=== PATIENT | female | born 1970 | race Hispanic/Latino ===

== ENCOUNTER 2023-10-01 17:06 | Inpatient (IN) | payer SELFPAY ==
[2023-10-01] MEDS ORDERED: MORPHINE 4 MG/ML SYR ONE (18:36)
[2023-10-01] MEDS ORDERED: ONDANSETRON 4 MG/2 ML VIAL ONE (18:36)
[2023-10-01 18:49] LABS: Absolute Basophils 0.1 K/uL (0-0.5); Absolute Eosinophils 0.2 K/uL (0-0.5); Absolute Lymphocytes (CBC) 1.1 K/uL (0.7-4.9); Absolute Monocytes 1.2 K/uL (0.1-1.3); Absolute Neutrophil 9.1 K/uL (1.8-8.0); Basophils % 0.5 % (0-1.3); Eosinophils % 1.6 % (0-4.4); Hematocrit 31.3 % (36.0-45.0); Hemoglobin 9.6 g/dL (12.0-15.0); Lymphocytes % 9.2 % (15.3-44.8); MCHC 30.7 g/dL (32.0-36.0); MCV 81.5 fL (80-100); MPV 8.6 fL (7.6-11.3); Monocytes % 10.6 % (3.3-12.3); Neutrophils % 78.1 % (41.7-73.7); Nucleated Red Blood Cells % 0.1 % (0-0); Platelets 245 thou/uL (152-406); RBC Red Blood Cell Count 3.84 M/uL (3.86-4.86); Red Cell Distribution Width 19.6 % (12.1-15.2)
[2023-10-01 19:04] LABS: PT Prothrombin Time 15.9 SECONDS (9.4-12.5); PTT, Activated Partial Thromb 32.9 SECONDS (24.3-36.9); Protime INR 1.43
[2023-10-01 19:07] LABS: SARS-CoV-2 Antigen CONTROL BLUE LINE VIS/BG OK; SARS-CoV-2 Antigen Rapid Res Negative (Negative)
[2023-10-01 19:12] LABS: AST/SGOT 56 U/L (15-37); Albumin 2.6 g/dL (3.4-5.0); Albumin/Globulin Ratio 0.6 (1.1-1.8); Alkaline Phosphatase 179 U/L (45-117); Anion Gap 11.1 mEq/L (5.0-15.0); BUN Blood Urea Nitrogen 28 mg/dL (7-18); Bicarbonate 29 mEq/L (21-32); Bilirubin Total 0.7 mg/dL (0.2-1.0); Globulin 4.3 g/dL (2.3-3.5); Glomerular Filtration Rate 112 ml/min (=/>90); Glucose Level 106 mg/dL (74-106); NT PRO-BNP 2404 pg/mL (<125); Potassium 3.1 mEq/L (3.5-5.1); Protein, Total 6.9 g/dL (6.4-8.2); Sodium Level 138 mEq/L (136-145)
[2023-10-01 19:13] LABS: ALT/SGPT < 14 U/L (13-56)
[2023-10-01 19:43] LABS: Specific Gravity > 1.030 (1.005-1.030); Sqamous Epithelial <5 /HPF (None Seen); Urine Bacteria None Seen /HPF (<20); Urine Bilirubin NEGATIVE (Negative); Urine Blood Negative (Negative); Urine Clarity Extremely Turbid (Clear); Urine Color Yellow (Yellow); Urine Culture Reflex Order NOT NEEDED; Urine Glucose NEGATIVE (Negative); Urine Ketones 2+ (Negative); Urine Microscopic Reflex YN ORDER UMIC; Urine Mucus Slight /HPF (None Seen); Urine Nitrite NEGATIVE (Negative); Urine Protein 2+ (Negative); Urine RBC 21-50 /HPF (None Seen); Urine Urobilinogen 1+ (Normal); Urine WBC <5 /HPF (<5)
--- NOTE | 2023-10-01 20:10 | RAD REPORT ---
EXAM DESCRIPTION: Chasidy Single View10/01/2023 6:37 pm CLINICAL HISTORY: DYSPNEA COMPARISON: No comparisons TECHNIQUE: Portable AP view of the chest. FINDINGS: Central interstitial prominence bilaterally. Scattered mild mid to lower lung patchy opaci ties. No pneumothorax or effusion. The cardiomediastinal contours are unremarkable. IMPRESSION: Mild mid to lower lung patchy opacities and mild central interstitial prominence. Findin gs may reflect early pneumonitis or mild edema.
[2023-10-01] MEDS ORDERED: HYDRALAZINE HCL 20 MG/ML VIAL ONE (20:36)
--- NOTE | 2023-10-01 22:03 | RAD REPORT ---
EXAM DESCRIPTION: CT - Chest Abdomen Pelvis W Cont - 10/01/2023 8:48 pm CLINICAL HISTORY: dyspnea, abd pain;Chest pain COMPARISON: Chest Single View dated 10/01/2023 TECHNIQUE: Thin axial CT images of the chest, abdomen, and pelvis, performed following intravenous a dministration of iodinated contrast. Multiplanar reformats were generated and reviewed. All CT scans are performed using dose optimization technique as appropriate and may include automated exposure control or mA/KV adjustment according to patient size. FINDINGS: Small layering left pleural effusion. Peripheral predominant reticulonodular opacities and mild central interstitial prominence. Subsegmental dependent atelectatic changes in the left lower l obe.No pleural or pericardial effusion.Moderate cardiomegaly. The liver, spleen, pancreas, adrenal glands and kidneys are within normal limits. Sequelae of gastric bypass noted. Appendix is unremarkable. No bowel obstruction, free air, free flui d or abscess. Status post cholecystectomy. Mild central biliary radicle prominence and mild prominenc e of the common bile duct may relate to postcholecystectomy status. No pathologic lymphadenopathy in the abdomen or pelvis. Prominent bilateral hilar and mediastinal lymph nodes, the largest node is present in the subcarinal region measuring 1.5 cm in short axis. Prominent epigastric and upper retroperitoneal lymph nodes as well, largest in the left para-aortic region, measuring 1.3 cm in short axis. Diffuse body wall edema. Innumerable lucent lesions throughout the axial and appendicular skeletons, resulting in numerous com pression fracture deformities at T5, T6, T8, T11, T12, and L3. The lesion involving posterior T8 vert ebral body is sizable, with some retropulsion of the posterior vertebral body margin extending approx imately 6 mm. Periosteal reaction along the inferior pubic ramus and left lateral eighth rib, suggest ing healing fractures. IMPRESSION: Moderately prominent mediastinal, bilateral hilar, epigastric, and upper retroperitoneal lymph nodes, concerning for neoplastic/metastatic etiology. Innumerable lucent osseous lesions, suggesting metastatic disease or involvement with blood dyscrasia s, resulting in numerous thoracic and lumbar vertebral body compression deformities. 6 mm retropulsio n is noted along the posterior T8 vertebral body margin. Diffuse body wall edema. Reticulonodular bilateral peripheral predominant opacities, may represent an infectious or inflammato ry process versus lymphangitic neoplastic involvement. Small layering left pleural effusion. Moderate cardiomegaly.
--- NOTE | 2023-10-01 23:12 | EDPHYS ---
Physician Documentation [facility] Name: Erin Vega Age: 53 yrs Sex: Female : 1970 Arrival Date: 10/01/2023 Time: 17:06 Bed 13 Private MD: ED Physician Alexys Peraza HPI: 09/30 18:04 This 53 yrs old Female presents to ER via Wheelchair with complaints of sb4 Shortness Of Breath. 18:04 The patient has shortness of breath at rest. Patient states that she has been feeling sb4 fatigued and short of breath for the past few days. She was recently diagnosed with iron deficiency and has been getting iron infusions weekly for the past 2 weeks. She states that additionally, she has been getting vitamin IV infusions twice a week. The nurse providing her infusions checked her vitals today and noted her to be hypoxic and hypertensive and sent her to the ED for further evaluation. 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 - Infectious Disease History:: Denies. - Social history:: Smoking status: Patient denies any tobacco usage or history of. ROS: 18:04 Cardiovascular: Negative for chest pain, palpitations, and edema, sb4 18:04 Constitutional: Positive for fatigue, malaise, 18:04 Respiratory: Positive for dyspnea on exertion, shortness of breath, 18:04 Back: Positive for pain at rest, pain with movement, 18:04 Hematologic/Lymphatic: Positive for bruising, 18:04 All other systems are negative, Exam: 18:04 Head/Face: Normocephalic, atraumatic. Eyes: Extra-ocular motions intact. Periorbital sb4 areas with no swelling, redness, or edema. ENT: Mucous membranes moist. Cardiovascular: Regular rate and rhythm with a normal S1 and S2. Respiratory: Lungs have equal breath sounds bilaterally, clear to auscultation and percussion. No rales, rhonchi or wheezes noted. No increased work of breathing, no retractions or nasal flaring. Abdomen/GI: Soft, non-tender, no distension. 18:04 Constitutional: The patient appears alert, awake, obviously ill, uncomfortable, 18:04 Skin: ecchymosis bilateral upper arms. Vital Signs: 17:24 BP 227 / 116; Pulse 102; Resp 24; Temp 97.6(TE); Pulse Ox 95% on R/A; db 18:17 BP 202 / 110; Pulse 91; Resp 18; Pulse Ox 94% ; dd2 18:56 BP 192 / 102; Pulse 87; Resp 15; Pulse Ox 98% ; dd2 19:00 BP 206 / 100; Pulse 82; Resp 18; Pulse Ox 98% on 3 lpm NC; al5 20:00 BP 199 / 105; Pulse 81; Resp 18; Pulse Ox 97% on 3 lpm NC; al5 20:32 Weight 61.69 kg; Height 5 ft. 0 in. ; al5 21:00 BP 182 / 93; Pulse 93; Resp 18; Pulse Ox 96% on 3 lpm NC; al5 21:30 BP 186 / 90; Pulse 91; Resp 18; Pulse Ox 96% on 3 lpm NC; al5 22:00 BP 180 / 95; Pulse 90; Resp 18; Pulse Ox 97% on 3 lpm NC; al5 22:30 BP 186 / 89; Pulse 94; Resp 18; Pulse Ox 85% on R/A; al5 22:45 BP 188 / 99; Pulse 98; Resp 18; Pulse Ox 95% on 3 lpm NC; al5 23:00 BP 193 / 103; Pulse 102; Resp 18; Pulse Ox 95% on 3 lpm NC; al5 23:30 BP 189 / 95; Pulse 97; Resp 18; Pulse Ox 95% on 3 lpm NC; al5 10/01 11:47 BP 194 / 112; Pulse 85; Resp 20; Pulse Ox 96% on 2 lpm NC; kj2 09/30 20:32 Body Mass Index 26.56 (61.69 kg, 152.4 cm) al5 MDM: 09/30 17:20 Patient medically screened. sb4 23:55 Data reviewed: vital signs, nurses notes, lab test result(s), EKG, radiologic studies, sb4 I have discussed the patient's presentation/case with the attending Emergency Department Physician; and as a result, I will admit patient. Consideration of Admission/Observation Patient was admitted/placed on observation. Counseling: I had a detailed discussion with the patient and/or guardian regarding the historical points, exam findings, and any diagnostic results supporting the discharge/admit diagnosis, the presence of at least one elevated blood pressure reading (>120/80) during this emergency department visit, lab results, radiology results, the need for further work-up and treatment in the hospital. 09/30 17:35 Order name: Blood Culture Adult (2) [facility] 09/30 17:35 Order name: CBC with Diff; Complete Time: 18:58 sb4 09/30 17:35 Order name: CMP; Complete Time: 19:19 [facility] 09/30 17:35 Order name: Lactate w/ 2H reflex if indic.; Complete Time: 19:11 sb 09/30 17:35 Order name: Protime (+inr); Complete Time: 19:05 [facility] 09/30 17:35 Order name: Ptt, Activated; Complete Time: 19:05 [facility] 09/30 17:35 Order name: Urinalysis w/ reflexes; Complete Time: 19:44 sb4 09/30 17:35 Order name: NT PRO-BNP; Complete Time: 19:19 [facility] 09/30 17:36 Order name: Type And Screen; Complete Time: 20:54 sb4 09/30 17:37 Order name: SARS RAPID; Complete Time: 19:08 4 09/30 20:46 Order name: ABO/RH no charge; Complete Time: 20:50 [facility]CO 09/30 23:43 Order name: Urinalysis w/ reflexes EDCO 09/30 23:43 Order name: CBC with Automated Diff EDCO 09/30 23:43 Order name: CBC with Automated Diff; Complete Time: 13:34 EDMS 09/30 23:43 Order name: Comprehensive Metabolic Panel EDCO 09/30 23:43 Order name: Comprehensive Metabolic Panel; Complete Time: 13:34 EDMS 10/01 08:51 Order name: CBC Smear Scan; Complete Time: 13:34 EDMS 09/30 17:35 Order name: Chest Single View XRAY; Complete Time: 20:12 sb4 09/30 20:13 Order name: CT Chest, Abdomen, Pelvis - W/Contrast; Complete Time: 22:08 sb4 09/30 17:35 Order name: Accucheck; Complete Time: 18:54 sb4 09/30 17:35 Order name: Cardiac monitoring; Complete Time: 18:11 sb4 09/30 17:35 Order name: EKG - Nurse/Tech; Complete Time: 18:36 sb4 09/30 17:35 Order name: IV Saline Lock - Large Bore; Complete Time: 18:36 sb4 09/30 17:35 Order name: Labs collected and sent; Complete Time: 19:30 sb4 09/30 17:35 Order name: O2 Per Protocol; Complete Time: 18:11 sb4 09/30 17:35 Order name: O2 Sat Monitoring; Complete Time: 18:11 sb4 09/30 17:35 Order name: Vital Signs; Complete Time: 18:11 sb4 EC:35 Rate is 94 beats/min. Rhythm is regular, Normal Sinus Rhythm. CT interval is normal at sb4 144 msec. QRS interval is normal at 126 msec. QT interval is normal at 370 msec. No Q waves. T waves are Normal. Clinical impression: NSR w/ Non-specific ST/T Changes and LVH. Interpreted by me. Reviewed by me. Administered Medications: 18:48 Drug: morphine IVP or IV 4 mg IVP once over 4 mins Route: IVP; Infused Over: 4 mins; dd2 Site: right forearm; 19:30 Follow up: Response: No adverse reaction; Pain is decreased al5 18:48 Drug: Ondansetron IVP 4 mg IVP once; over 2 minutes Route: IVP; Site: right forearm; dd2 19:30 Follow up: Response: No adverse reaction; Nausea is decreased al5 20:42 Drug: hydrALAZINE IVP 10 mg IVP once Route: IVP; Site: right forearm; al5 21:00 Follow up: Response: No adverse reaction; Blood pressure is elevated al5 Disposition Summary: 10/01/23 23:11 Hospitalization Ordered Notes: Hospitalization Status: Inpatient Admission sb4 Provider: Andrea Jackson sb4 Condition: Fair sb4 Problem: new sb4 Symptoms: are unchanged sb4 Bed/Room Type: Standard sb4 Location: Telemetry/MedSurg (Inpatient)(10/02/23 13:34) bd Room Assignment: 216(10/02/23 13:34) bd Diagnosis - Hypoxemia sb4 - Iron deficiency anemia, unspecified sb4 - Innumerable metasteses sb4 Forms: - Medication Reconciliation Form sb4 - SBAR form sb4 - Leadership Thank You Letter sb4 Addendum: 10/07/2023 16:02 I was immediately available for consultation during this patient's visit. I did not e c2 personally see the patient or discuss the patient with the LORELEI. . Signatures: Dispatcher [employer] EDMS CatieNuris hanson Shira Sharma, RN RN cg Raven Cardona RN RN ko1 Jacklyn Dunn, RN RN Nicole Bell, PABashir PAJezC sb4 Alexys Peraza MD MD ec2 Olivia Avalos RN RN al5 TAMEKA WALLER RN RN dd2 Corrections: (The following items were deleted from the chart) 09/30 17:36 17:35 BLOOD CULTURE*+BA.LAB.BRZ ordered. EDMS EDMS 17:36 17:35 CBC+H.LAB.BRZ ordered. EDMS EDMS 17:36 17:35 COMPREHENSIVE METABOLIC PANEL+C.LAB.BRZ ordered. EDMS EDMS 17:36 17:35 LACTATE+C.LAB.BRZ ordered. EDMS EDMS 17:36 17:35 PROTIME (+INR)+COAG.LAB.BRZ ordered. EDMS EDMS 17:36 17:35 PTT, ACTIVATED+COAG.LAB.BRZ ordered. EDMS EDMS 17:36 17:35 Urinalysis+U.LAB.BRZ ordered. EDMS EDMS 17:36 17:35 PROBNP+C.LAB.BRZ ordered. EDMS EDMS 17:36 17:36 Chest Single View+RAD.RAD.BRZ ordered. EDMS EDMS 23:49 23:11 Telemetry/MedSurg (Inpatient) sb4 cg 23:49 23:11 sb4 cg 10/01 13:34 09/30 23:49 [facility] ER HOLD cg bd 10/01 13:34 09/30 23:49 ERHOLD- cg bd
--- NOTE | 2023-10-01 23:12 | ER ---
Nurse's Notes [facility] Name: Erin Vega Age: 53 yrs Sex: Female : 1970 Arrival Date: 10/01/2023 Time: 17:06 Bed 13 Private MD: Diagnosis: Hypoxemia;Iron deficiency anemia, unspecified;Innumerable metasteses Presentation: 09/30 17:24 Chief complaint: Patient states: SENT TODAY BY INFUSION NURSE FOR SOB, BILAT BRUISING db OF EXTREMITIES, CHRONIC BACK PAIN, LOW 02 92%, BP HIGH 220/130. RECEIVES IRON INFUSIONS WEEKLY. HAD SX FOR ULCER PERFORATION AND HAD MULTIPLE BLOOD TRANSFUSIONS. Coronavirus screen: Client denies travel out of the [place] in the last 14 days. At this time, the client does not indicate any symptoms associated with coronavirus-19. Ebola Screen: Patient negative for fever greater than or equal to 101.5 degrees Fahrenheit, and additional compatible Ebola Virus Disease symptoms Patient denies exposure to infectious person. Patient denies travel to an Ebola-affected area in the 21 days before illness onset. No symptoms or risks identified at this time. Initial Sepsis Screen: Does the patient meet any 2 criteria? No. Patient's initial sepsis screen is negative. Does the patient have a suspected source of infection? No. Patient's initial sepsis screen is negative. Risk Assessment: Do you want to hurt yourself or someone else? Patient reports no desire to harm self or others. Onset of symptoms was October 01, 2023. 17:24 Method Of Arrival: Wheelchair db 17:24 Acuity: EDINSON 2 db Triage Assessment: 17:24 General: Appears in no apparent distress. comfortable, Behavior is calm, cooperative. db Pain: Complains of pain in back. Neuro: Level of Consciousness is awake, alert, obeys commands, Oriented to person, place, time, situation, Speech is normal. Respiratory: Reports shortness of breath Airway is patent Respiratory effort is even, unlabored, Respiratory pattern is regular, symmetrical, Onset: The symptoms/episode began/occurred gradually, the patient has mild shortness of breath. 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 - Infectious Disease History:: Denies. - Social history:: Smoking status: Patient denies any tobacco usage or history of. Screenin:17 [facility] ED Fall Risk Assessment (Adult) History of falling in the last 3 months, dd2 including since admission No falls in past 3 months (0 pts) Confusion or Disorientation No (0 pts) Intoxicated or Sedated No (0 pts) Impaired Gait No (0 pts) Mobility Assist Device Used No (0 pt) Altered Elimination No (0 pt) Score/Fall Risk Level 0 - 2 = Low Risk Oriented to surroundings, Maintained a safe environment, Educated pt \T\ family on fall prevention, incl call for assistance when getting out of bed, Assessed \T\ reinforced patient's understanding of fall precautions, Provided non-skid footwear, Hourly rounding (assess needs \T\ fall precautionary measures) done, Used ambulatory aids as needed (educated on \T\ assisted with), Used gait belt as appropriate. Abuse screen: Denies threats or abuse. Denies injuries from another. Nutritional screening: No deficits noted. Tuberculosis screening: No symptoms or risk factors identified. Assessment: 18:50 General: Appears in no apparent distress. Behavior is calm, cooperative. dd2 Cardiovascular: elevated BP. Rhythm is sinus rhythm. Respiratory: Reports shortness of breath Airway is patent Respiratory effort is even, unlabored, Breath sounds are clear bilaterally. GI: No deficits noted. : No deficits noted. EENT: No deficits noted. Derm: Bruising that is dark purple, on right arm and left arm. Musculoskeletal: No deficits noted. 18:53 Pain: Complains of pain in back. dd2 19:15 General: Appears in no apparent distress. Behavior is calm, cooperative. Pain: al5 Complains of pain in back Pain currently is 1 out of 10 on a pain scale. Neuro: Level of Consciousness is awake, alert, obeys commands, Oriented to person, place, time, situation. Cardiovascular: Capillary refill < 3 seconds Patient's skin is warm and dry. Respiratory: Airway is patent Respiratory effort is even, unlabored, Respiratory pattern is regular, symmetrical. GI: No signs and/or symptoms were reported involving the gastrointestinal system. : No signs and/or symptoms were reported regarding the genitourinary system. EENT: No signs and/or symptoms were reported regarding the EENT system. Derm: Bruising that is dark purple, on left arm and right arm. Musculoskeletal: No signs and/or symptoms reported regarding the musculoskeletal system. 20:10 Reassessment: Patient appears in no apparent distress at this time. No changes from al5 previously documented assessment. Patient and/or family updated on plan of care and expected duration. Pain level reassessed. Patient is alert, oriented x 3, equal unlabored respirations, skin warm/dry/pink. 21:44 Reassessment: Patient appears in no apparent distress at this time. No changes from al5 previously documented assessment. Patient and/or family updated on plan of care and expected duration. Pain level reassessed. Patient is alert, oriented x 3, equal unlabored respirations, skin warm/dry/pink. 22:28 Reassessment: Patient appears in no apparent distress at this time. No changes from al5 previously documented assessment. Patient and/or family updated on plan of care and expected duration. Pain level reassessed. Patient is alert, oriented x 3, equal unlabored respirations, skin warm/dry/pink. 23:56 Reassessment: Patient appears in no apparent distress at this time. No changes from al5 previously documented assessment. Patient and/or family updated on plan of care and expected duration. Pain level reassessed. Patient is alert, oriented x 3, equal unlabored respirations, skin warm/dry/pink. 10/01 10:15 General: Appears in no apparent distress. Behavior is calm, cooperative. Neuro: Level kj2 of Consciousness is awake, alert, obeys commands, Oriented to person, place, time, situation. Cardiovascular: Patient's skin is warm and dry. Respiratory: Airway is patent Respiratory effort is even, unlabored. Vital Signs: 09/30 17:24 BP 227 / 116; Pulse 102; Resp 24; Temp 97.6(TE); Pulse Ox 95% on R/A; db 18:17 BP 202 / 110; Pulse 91; Resp 18; Pulse Ox 94% ; dd2 18:56 BP 192 / 102; Pulse 87; Resp 15; Pulse Ox 98% ; dd2 19:00 BP 206 / 100; Pulse 82; Resp 18; Pulse Ox 98% on 3 lpm NC; al5 20:00 BP 199 / 105; Pulse 81; Resp 18; Pulse Ox 97% on 3 lpm NC; al5 20:32 Weight 61.69 kg; Height 5 ft. 0 in. ; al5 21:00 BP 182 / 93; Pulse 93; Resp 18; Pulse Ox 96% on 3 lpm NC; al5 21:30 BP 186 / 90; Pulse 91; Resp 18; Pulse Ox 96% on 3 lpm NC; al5 22:00 BP 180 / 95; Pulse 90; Resp 18; Pulse Ox 97% on 3 lpm NC; al5 22:30 BP 186 / 89; Pulse 94; Resp 18; Pulse Ox 85% on R/A; al5 22:45 BP 188 / 99; Pulse 98; Resp 18; Pulse Ox 95% on 3 lpm NC; al5 23:00 BP 193 / 103; Pulse 102; Resp 18; Pulse Ox 95% on 3 lpm NC; al5 23:30 BP 189 / 95; Pulse 97; Resp 18; Pulse Ox 95% on 3 lpm NC; al5 10/01 11:47 BP 194 / 112; Pulse 85; Resp 20; Pulse Ox 96% on 2 lpm NC; kj2 09/30 20:32 Body Mass Index 26.56 (61.69 kg, 152.4 cm) id5 ED Course: 09/30 17:12 Patient arrived in ED. mg5 17:12 Nicole Burroughs PA-C is PHCP. sb4 17:12 Alexys Peraza MD is Attending Physician. sb4 17:26 Triage completed. db 17:27 Arm band placed on left wrist. db 17:56 TAMEKA WALLER, ASIA is Primary Nurse. dd2 18:17 Patient has correct armband on for positive identification. Allergy band placed. Bed in dd2 low position. Call light in reach. Side rails up X2. Provided Education on: labs, call light, meds. Client placed on continuous cardiac and pulse oximetry monitoring. NIBP monitoring applied. signing agent on. Door closed. Noise minimized. Lights dimmed. Warm blanket given. Pillow given. 18:25 Inserted saline lock: 22 gauge in left wrist, using aseptic technique. Blood collected. ll1 Flushed with 10 mL NS. 18:36 EKG done, by ED staff, reviewed by Nicole Burroughs PA-C. dd2 18:37 SARS RAPID Sent. dd2 18:38 CBC with Diff Sent. dd2 18:38 CMP Sent. dd2 18:38 Lactate w/ 2H reflex if indic. Sent. dd2 18:38 Protime (+inr) Sent. dd2 18:38 Ptt, Activated Sent. dd2 18:39 Chest Single View XRAY In Process Unspecified. EDMS 18:53 No provider procedures requiring assistance completed. Missed attempt(s): 20 gauge in dd2 left antecubital area. Bleeding controlled, band aid applied, catheter tip intact. Oxygen administration via nasal cannula \T\ 2L/min. 19:30 Blood Culture Adult (2) Sent. al5 19:30 Urinalysis w/ reflexes Sent. al5 19:31 Type And Screen Sent. al5 20:49 CT Chest, Abdomen, Pelvis - W/Contrast In Process Unspecified. EDMS 23:10 Andrea Jackson MD is Hospitalizing Provider. sb4 23:30 Patient admitted, IV remains in place. vc1 Administered Medications: 18:48 Drug: morphine IVP or IV 4 mg IVP once over 4 mins Route: IVP; Infused Over: 4 mins; dd2 Site: right forearm; 19:30 Follow up: Response: No adverse reaction; Pain is decreased al5 18:48 Drug: Ondansetron IVP 4 mg IVP once; over 2 minutes Route: IVP; Site: right forearm; dd2 19:30 Follow up: Response: No adverse reaction; Nausea is decreased al5 20:42 Drug: hydrALAZINE IVP 10 mg IVP once Route: IVP; Site: right forearm; al5 21:00 Follow up: Response: No adverse reaction; Blood pressure is elevated al5 Medication: 18:53 VIS not applicable for this client. dd2 Outcome: 23:11 Decision to Hospitalize by Provider. sb4 23:30 Admitted to ER Hold. Please see [facility] for further documentation. vc1 23:30 Condition: good 23:30 Instructed on the need for admit, vc1 10/01 15:42 Patient left the ED. cm10 Signatures: Dispatcher [employer] EDMS Alex Her RN RN ll1 Delia Brady RN RN vc1 Jacklyn Dunn RN RN Nicole Bell PA-C PA-C sb4 Laine Islas, RN RN cm10 Teresa Murrell mg5 Olivia Avalos RN RN al5 Suzette Bruce, RN RN kj2 TAMEKA WALLER RN RN dd2 Corrections: (The following items were deleted from the chart) 09/30 18:53 18:50 General: Appears in no apparent distress. Behavior is calm, cooperative, dd2 dd2 21:45 19:00 BP 206 / 100; Pulse 82bpm; Resp 18bpm; Pulse Ox 98% RA; al5 al5 21:45 20:00 BP 199 / 105; Pulse 81bpm; Resp 18bpm; Pulse Ox 97% RA; al5 al5
--- NOTE | 2023-10-01 23:37 | P.HP ---
Certification for Inpatient Patient admitted to: Inpatient With expected LOS: >2 Midnights Practitioner: I am a practitioner with admitting privileges, knowledge of patient current condition, hospital course, and medical plan of care. Services: Services provided to patient in accordance with Admission requirements found in Title 42 Section 412.3 of the Code of Federal Regulations Patient History Date of Service: 10/02/23 Reason for admission: Shortness of breath, generalized weakness History of Present Illness: 53 yrs old Female with past medical history of hypertensive disorder ,Anemia , on iron infusion brought to ER with shortness of breath and generalized weakness had intractable body pain which has been going on for the few days and has been getting worse recently and was brought to ER . She was diagnosed with iron deficiency anemia and has been receiving infusions of iron for the last 2 weeks. In the infusion clinic they noticed that the patient was hypoxic and short of breath and hypertensive and was sent over to the ER for further management. Patient denies any chest pain. Have generalized body pain. Denies any fever or chills. No nausea vomiting or diarrhea. Patient was assessed in the ER and is admitted for further management Allergies pantoprazole Allergy (Verified 10/02/23 00:41) Nausea/Vomiting sucralfate [From Carafate] Allergy (Verified 10/02/23 00:41) Rash Home medications list reviewed: Yes - Past Medical/Surgical History Past Medical History: Reviewed- Non-Contributory -: Hypertension -: Iron deficiency anemia Past Surgical History: Reviewed- Non-Contributory - Family History Family History: Reviewed- Non-Contributory Physical Examination - Vital Signs Temperature: 97.2 F Blood Pressure: 132/72 Pulse: 76 Respirations: 18 Pulse Ox (%): 94 - Physical Exam General: Alert, Oriented x3, Mild distress HEENT: Atraumatic, Normocephalic Neck: Supple Respiratory: Diminished, Crackles/rales Cardiovascular: Normal pulses, Regular rate/rhythm, Normal S1 S2 Capillary refill: <2 Seconds Gastrointestinal: Soft and benign, W/out hepatosplenomegaly Musculoskeletal: No clubbing Integumentary: No rashes, No breakdown Neurological: Normal speech, Normal strength at 5/5 x4 extr, Cranial nerves 3-12 intact Lymphatics: No axilla or inguinal lymphadenopathy - Studies Laboratory Data (last 24 hrs) 08/20/24 08/20/24 08/20/24 18:30 18:30 18:30 WBC 11.70 H Hgb 9.6 L Hct 31.3 L Plt Count 245 PT 15.9 H INR 1.43 APTT 32.9 Sodium 138 Potassium 3.1 L BUN 28 H Creatinine 0.51 L Glucose 106 Total Bilirubin 0.7 AST 56 H ALT < 14 Alkaline Phosphatase 179 H Assessment and Plan - Plan Acute on chronic CHF possibly systolic/diastolic Monitor closely on telemetry Started on aggressive diuresis Oxygen supplementation as needed Will try to wean down oxygen requirement Continue home medications Titrate as needed Will obtain an echocardiogram Elevated BNP found History of iron deficiency anemia On iron infusions Will monitor CBC Transfuse as needed Abnormal CT scan Patient denies any history of cancers CT findings noted with possible metastatic lesions Needs further workup Hypertension Antihypertensives titrated Continue home medications and titrate as needed Hyperlipidemia Continue statin GI/DVT prophylaxis Advanced directive full code Discharge Plan: Home Plan to discharge in: 48 Hours - Advance Directives Does patient have a Living Will: No Does patient have a Durable POA for Healthcare: No - Code Status/Comfort Care Code Status: Full Code Time Spent Managing Pts Care (In Minutes): 48
[2023-10-01] MEDS ORDERED: ALBUTEROL 2.5 MG/3 ML NEB SOL NEB PRN (23:38)
[2023-10-01] MEDS ORDERED: ACETAMINOPHEN 325 MG TABLET PO PRN (23:38)
[2023-10-01] MEDS ORDERED: IPRATROPIUM BROM 0.5MG/2.5ML NEB PRN (23:38)
[2023-10-02] MEDS: NA CHLORIDE 0.9% 1,000 ML IV SCH
[2023-10-02] MEDS ORDERED: NA CHLORIDE 0.9% 1,000 ML ONE ×2 (00:43→12:19)
[2023-10-02] MEDS: FUROSEMIDE 40 MG/4 ML VIAL IV SCH (02:43)
[2023-10-02] MEDS ORDERED: FUROSEMIDE 40 MG/4 ML VIAL ONE ×2 (04:42→08:31)
[2023-10-02] MEDS ORDERED: MORPHINE 2 MG/ML SYR ONE ×3 (04:42→14:38)
[2023-10-02 05:04] VITALS: BMI 26.5
[2023-10-02 07:42] LABS: Absolute Basophils 0.1 K/uL (0-0.5); Absolute Eosinophils 0.3 K/uL (0-0.5); Absolute Lymphocytes (CBC) 1.1 K/uL (0.7-4.9); Absolute Monocytes 1.2 K/uL (0.1-1.3); Absolute Neutrophil 8.4 K/uL (1.8-8.0); Basophils % 0.8 % (0-1.3); Eosinophils % 2.6 % (0-4.4); Hematocrit 29.4 % (36.0-45.0); Hemoglobin 9.5 g/dL (12.0-15.0); Lymphocytes % 9.5 % (15.3-44.8); MCH 26.1 pg (27.0-35.0); MCHC 32.4 g/dL (32.0-36.0); MCV 80.7 fL (80-100); MPV 8.1 fL (7.6-11.3); Monocytes % 10.6 % (3.3-12.3); Neutrophils % 76.5 % (41.7-73.7); Nucleated Red Blood Cells % 0.1 % (0-0); Platelets 260 thou/uL (152-406); RBC Red Blood Cell Count 3.65 M/uL (3.86-4.86); Red Cell Distribution Width 18.9 % (12.1-15.2)
[2023-10-02 08:01] LABS: Albumin 2.3 g/dL (3.4-5.0); Albumin/Globulin Ratio 0.5 (1.1-1.8); Bilirubin Total 0.5 mg/dL (0.2-1.0); Globulin 4.2 g/dL (2.3-3.5); Protein, Total 6.5 g/dL (6.4-8.2)
[2023-10-02] MEDS: POTASSIUM CL SA 10 MEQ TAB PO ONE (08:15)
[2023-10-02] MEDS ORDERED: POTASSIUM CL SA 10 MEQ TAB PO ONE (08:31)
[2023-10-02] MEDS ORDERED: ONDANSETRON 4 MG/2 ML VIAL ONE (08:31)
[2023-10-02] MEDS: MORPHINE 2 MG/ML SYR IV PRN (08:48)
[2023-10-02] MEDS: ONDANSETRON 4 MG/2 ML VIAL IV PRN (08:48)
[2023-10-02 08:51] LABS: Anisocytosis SLIGHT; Blood Morphology Comment NOTED (NOT SEEN); Microcytosis 1+; Platelet Estimate ADEQ; White Blood Cell Scan OK (OK)
[2023-10-02] MEDS: ENOXAPARIN 40 MG/0.4 ML SQ SCH (09:00)
[2023-10-02] MEDS ORDERED: lisinopriL 10 MG TAB ONE (12:03)
[2023-10-02] MEDS: lisinopriL 10 MG TAB PO SCH (12:08)
[2023-10-02] MEDS ORDERED: HYDRALAZINE HCL 10 MG TABLET ONE (14:47)
[2023-10-02] MEDS ORDERED: HYDRALAZINE HCL 20 MG/ML VIAL ONE (14:50)
[2023-10-02] MEDS: HYDRALAZINE HCL 20 MG/ML VIAL IV PRN (14:56)
[2023-10-02] MEDS: SOD FERRIC GLUC COMPLX/SUCROSE 250 MG in NA CHLORIDE 0.9% 250 ML IV SCH (16:19)
[2023-10-02] MEDS: AMLODIPINE 10 MG TAB PO SCH (16:37)
--- NOTE | 2023-10-02 16:58 | EKG ---
Test Date: 2023-10-01 Test Time: 18:31:52 Equipment Washer: ZIGGY MEASUREMENT RESULTS: Intervals: Rate: 94 KS: 144 QRSD: 126 QT: 370 QTc: 462 [place]: P: 17 KS: 144 QRS: 1 T: 179 INTERPRETIVE STATEMENTS: Normal sinus rhythm Left ventricular hypertrophy with QRS widening and repolarization abnormality Abnormal ECG No previous ECG available for comparison Electronically Signed On 10-02-23 16:56:08 CDT by Marcel Martines
--- NOTE | 2023-10-02 17:22 | P.PN ---
Subjective Date of Service: 10/02/23 Chief Complaint: Shortness of breath, generalized weakness Patient reports generalized weakness and back pain. Blood pressure severely elevated. Patient is maintained on 2 to 3 L of oxygen by nasal cannula. Physical Examination - Vital Signs Temperature: 97.9 F Blood Pressure: 190/92 Pulse: 100 Respirations: 16 Pulse Ox (%): 92 - Studies Laboratory Data (last 24 hrs) 10/01/23 10/01/23 10/01/23 18:30 18:30 18:30 WBC 11.70 H Hgb 9.6 L Hct 31.3 L Plt Count 245 PT 15.9 H INR 1.43 APTT 32.9 Sodium 138 Potassium 3.1 L BUN 28 H Creatinine 0.51 L Glucose 106 Total Bilirubin 0.7 AST 56 H ALT < 14 Alkaline Phosphatase 179 H Assessment And Plan - Plan Physical examination General: Alert and oriented x3, NAD, HEENT: Conjunctiva not pale, anicteric sclera, oxygen by nasal cannula. Neck: Supple, no elevated JVD Heart: Heart sounds 1 and 2 normal, regular rhythm, normal rate, no pedal edema Lungs: Clear to auscultation bilaterally, adequate breath sounds bilaterally, no rhonchi or crackles. Abdomen: Soft, nondistended, nontender, normal bowel sounds. Extremities: No tenderness, no deformity Skin: Normal skin turgor, no rash, no nodules or ulcers. Neuro: No focal motor deficit. Normal speech. Psychiatry: No agitation. Assessment and plan Acute respiratory failure with hypoxia Pulmonary metastasis Spine metastasis Trial of IV Lasix Oxygen supplementation as needed Wean oxygen as tolerated. Anticipating patient discharged with oxygen. Bronchodilators as needed Empiric antibiotic-IV Levaquin. Echocardiogram done and the result is pending. Case discussed with oncology Dr. Holloway. According to Dr. Holloway, patient had a lymph node biopsy during gastric resection in [facility] [[email or web address]] which reported gastric cancer but patient did not follow-up. Metastatic cancer likely related to the untreated gastric cancer. Dr. Holloway had a discussion with the family and they would like to obtain a tissue biopsy. Enlarged lymph nodes are probably located in the retroperitoneal space or in the mediastinum and hilar lymph nodes which may require mediastinoscopy or transbronchial biopsy. Patient will need to be transferred to a tertiary hospital to obtain a biopsy. Patient agree to transfer to [facility]. Transfer to [facility] initiated. Supportive measures with analgesics as needed. Chronic iron deficiency anemia On iron infusions as outpatient. Hemoglobin has been stable. Dr. Holloway recommend to continue iron infusion for the next 3 days. Hypertensive urgency Patient started on amlodipine. Continue home dose lisinopril Hydralazine as needed for BP spikes. GI/DVT prophylaxis: Lovenox Advanced directive: full code
[2023-10-02 18:31] LABS: Magnesium 1.6 mg/dL (1.6-2.4); Phosphorus 4.6 mg/dL (2.5-4.9)
[2023-10-02 21:45] VITALS: O2SAT 92
[2023-10-03 06:46] LABS: AST/SGOT 63 U/L (15-37); Absolute Basophils 0.1 K/uL (0-0.5); Absolute Eosinophils 0.3 K/uL (0-0.5); Absolute Monocytes 1.3 K/uL (0.1-1.3); Absolute Neutrophil 8.8 K/uL (1.8-8.0); Albumin 2.3 g/dL (3.4-5.0); Albumin/Globulin Ratio 0.5 (1.1-1.8); Alkaline Phosphatase 210 U/L (45-117); Anion Gap 8.3 mEq/L (5.0-15.0); BUN Blood Urea Nitrogen 15 mg/dL (7-18); Basophils % 0.7 % (0-1.3); Bicarbonate 36 mEq/L (21-32); Bilirubin Total 0.5 mg/dL (0.2-1.0); Eosinophils % 2.9 % (0-4.4); Globulin 4.4 g/dL (2.3-3.5); Glomerular Filtration Rate 111 ml/min (=/>90); Glucose Level 102 mg/dL (74-106); Hematocrit 32.4 % (36.0-45.0); Lymphocytes % 8.9 % (15.3-44.8); MCH 25.2 pg (27.0-35.0); MCHC 30.9 g/dL (32.0-36.0); MCV 81.3 fL (80-100); MPV 8.6 fL (7.6-11.3); Monocytes % 11.3 % (3.3-12.3); Neutrophils % 76.2 % (41.7-73.7); Nucleated Red Blood Cells % 0.1 % (0-0); Platelets 265 thou/uL (152-406); Potassium 3.3 mEq/L (3.5-5.1); Protein, Total 6.7 g/dL (6.4-8.2); RBC Red Blood Cell Count 3.98 M/uL (3.86-4.86); Red Cell Distribution Width 19.3 % (12.1-15.2); Sodium Level 139 mEq/L (136-145)
[2023-10-03 06:48] LABS: ALT/SGPT < 14 U/L (13-56)
--- NOTE | 2023-10-03 09:33 | ECHO ---
HEIGHT: 5 ft 0 in WEIGHT: 136 lb 0 oz DATE OF STUDY: 10/02/[address]: Errol Jackson DO 2-DIMENSIONAL: YES M.MODE: YES DOPPLER: YES COLOR FLOW: YES TDS: PORTABLE: YES DEFINITY: BUBBLE STUDY: DIAGNOSIS: CONGESTIVE HEART FAILURE CARDIAC HISTORY: CATHERIZATION: SURGERY: PROSTHETIC VALVE: PACEMAKER: MEASUREMENTS (cm) DIASTOLIC (NORMALS) SYSTOLIC (NORMALS) IVSd 1.3 (0.6-1.2) LA Diam 3.0 (1.9-4.0) LVEF 50-55% LVIDd 4.5 (3.5-5.7) LVIDs 3.5 (2.0-3.5) %FS 20% LVPWd 1.2 (0.6-1.2) Ao Diam 2.6 (2.0-3.7) 2 DIMENSIONAL ASSESSMENT: RIGHT ATRIUM: NORMAL LEFT ATRIUM: NORMAL RIGHT VENTRICLE: NORMAL LEFT VENTRICLE: MILD LEFT VENTRICULAR HYPERTROPHY TRICUSPID VALVE: MILD TRICUSPID REGURGITATION MITRAL VALVE: NORMAL PULMONIC VALVE: NORMAL AORTIC VALVE: TRACE AORTIC REGURGITATION PERICARDIAL EFFUSION: NONE AORTIC ROOT: NORMAL LEFT VENTRICULAR WALL MOTION: NORMAL DOPPLER/COLOR FLOW: GRADE I DIASTOLIC DYSFUNCTION COMMENTS: 1. NORMAL LEFT VENTRICULAR SYSTOLIC FUNCTION, EJECTION FRACTION 50-55%, NORMAL WALL MOTION 2. GRADE I DIASTOLIC DYSFUNCTION 3. INFERIOR VENA CAVA NOT WELL VISUALIZED TECHNOLOGIST: ROSIBEL LATIF
--- NOTE | 2023-10-03 10:05 | P.DS ---
Admission Date: 10/03/23 Discharge Date: 10/03/23 Disposition: ROUTINE DISCHARGE Discharge Condition: FAIR Reason for Admission: Shortness of breath, generalized weakness Brief History of Present Illness: Diagnosis Acute respiratory failure with hypoxia Pulmonary metastasis Spine metastasis Chronic iron deficiency anemia Hypertensive urgency HPI 10/01/23 Erin Vega is a 53 yrs old Female with past medical history of hypertensive disorder ,Anemia , on iron infusion brought to ER with shortness of breath and generalized weakness had intractable body pain which has been going on for the few days and has been getting worse recently and was brought to ER . She was diagnosed with iron deficiency anemia and has been receiving infusions of iron for the last 2 weeks. In the infusion clinic they noticed that the patient was hypoxic and short of breath and hypertensive and was sent over to the ER for further management. Patient denies any chest pain. Have generalized body pain. Denies any fever or chills. No nausea vomiting or diarrhea. Patient was assessed in the ER and is admitted for further management Hospital Course: Erin Vega is a pleasant 53 year old female with a past medical history significant for hypertensive disorder, Anemia on iron infusion, metastatic gastric cancer who was admitted to the [facility] on 10/01/23 for acute respiratory failure with hypoxia. Erin Vega was treated for respiratory failure due to hypoxia and placed on oxygen. CT CAP reports "Moderately prominent mediastinal, bilateral hilar, epigastric, and upper retroperitoneal lymph nodes, concerning for neoplastic/metastatic etiology." Attempt was made to transfer Erin to [facility] for biopsy and further treatment of metastasis, transfer was denied. Plan to discharge on home oxygen and go to the ED in [facility] for further cancer treatment and biopsy needs. Enlarged lymph nodes that need a biopsy for further treatment. She is tolerating PO diet, on 2 LNC with satisfactory oxygenation, with good family support. On 10/03/23, Erin was seen on morning rounds and deemed medically stable for discharge. Erin was discharged with instructions to schedule follow-up appointments with PCP and Oncology specifically to [facility]. Erin was provided prescriptions for levaquin empirically. Physical Exam General: Awake, Alert, Oriented x3, NAD, afebrile HEENT: Atraumatic, Normocephalic Neck: Supple Respiratory: Diminished, Crackles/rales, on 2 LNC Cardiovascular: Normal pulses, RRR, Normal S1 S2 Capillary refill: <2 Seconds Gastrointestinal: Soft and benign on palpation, active bowel sounds Musculoskeletal: No clubbing Integumentary: No rashes, No breakdown Neurological: Normal speech, Normal strength at 5/5 x4 extr, Cranial nerves 3-12 intact Lymphatics: No axilla or inguinal lymphadenopathy Vital Signs/Physical Exam: Temp Pulse Resp BP Pulse Ox 98.2 F 85 16 174/94 H 92 10/03/23 04:00 10/03/23 08:09 10/03/23 04:05 10/03/23 08:09 10/03/23 04:05 Laboratory Data at Discharge: WBC 11.60 thou/uL (4.3-10.9) H 10/03/23 06:01 Hgb 10.0 g/dL (12.0-15.0) L 10/03/23 06:01 Hct 32.4 % (36.0-45.0) L 10/03/23 06:01 Plt Count 265 thou/uL (152-406) 10/03/23 06:01 PT 15.9 SECONDS (9.4-12.5) H 10/01/23 18:30 INR 1.43 10/01/23 18:30 APTT 32.9 SECONDS (24.3-36.9) 10/01/23 18:30 Sodium 139 mEq/L (136-145) 10/03/23 06:01 Potassium 3.3 mEq/L (3.5-5.1) L 10/03/23 06:01 BUN 15 mg/dL (7-18) 10/03/23 06:01 Creatinine 0.52 mg/dL (0.55-1.02) L 10/03/23 06:01 Glucose 102 mg/dL (74-106) 10/03/23 06:01 Phosphorus 4.6 mg/dL (2.5-4.9) 10/02/23 17:56 Magnesium 1.6 mg/dL (1.6-2.4) 10/03/23 06:01 Total Bilirubin 0.5 mg/dL (0.2-1.0) 10/03/23 06:01 AST 63 U/L (15-37) H 10/03/23 06:01 ALT < 14 U/L (13-56) 10/03/23 06:01 Alkaline Phosphatase 210 U/L (45-117) H 10/03/23 06:01 Home Medications: Lisinopril [Zestril] 10 mg PO BID 10/02/23 Levofloxacin [Levaquin] 500 mg PO DAILY 7 Days #7 tab 10/03/23 New Medications: Levofloxacin [Levaquin] 500 mg PO DAILY 7 Days #7 tab Physician Discharge Instructions: Erin Vega was treated for respiratory failure due to hypoxia and placed on oxygen. Plan to discharge on home oxygen and go to the ED in [place] for further cancer treatment and biopsy needs. Enlarged lymph nodes that need a biopsy for further treatment. 1. Please call and schedule a follow-up appointment with your PCP in 3-5 days - Please follow-up with your PCP for medication refills/adjustments. -Continue Iron infusions as scheduled with your doctor 2. Please call and schedule a follow-up appointment with oncology in one week 3. Continue regular diet 4. activity restrictions, fall precaution 5. Return to the ED if symptoms worsen New medication Levaquin 50 mg PO daily x 7 days Diet: Regular Activity: Fall precautions Followup: Sara Holloway MD [Primary Care Provider] - 1-2 Weeks
[2023-10-03] MEDS: POTASSIUM 25 MEQ EFFERV TAB PO ONE (10:39)
[2023-10-03] MEDS: SOD FERRIC GLUC COMPLX/SUCROSE 250 MG in NA CHLORIDE 0.9% 250 ML IV SCH (10:40)
[2023-10-03 13:24] VITALS: TEMP 99.2
[2023-10-03] MEDS: HYDROCODONE/APAP 5/325 MG TAB PO PRN (16:58)
[2023-10-03 17:37] VITALS: BP 173/92
== END 2023-10-03 18:27 | disposition home or self-care (01) | DRG 291 ==
LOC: ER 17:06 → INTOOBSV 23:38 → ERHOLD 23:38 → 2ND 10-02 14:33 → OBSVTOIN 10-03 10:17
PROVIDERS: ADMIT Family Medicine; ATTEND Internal Medicine
DX: I11.0 Hypertensive heart disease with heart failure (principal); I50.43 Acute on chronic combined systolic (congestive) and diastolic (congestive) heart failure; J96.01 Acute respiratory failure with hypoxia; C78.00 Secondary malignant neoplasm of unspecified lung; C79.51 Secondary malignant neoplasm of bone; C16.9 Malignant neoplasm of stomach, unspecified; I16.0 Hypertensive urgency; E78.5 Hyperlipidemia, unspecified; D50.9 Iron deficiency anemia, unspecified; Z88.8 Allergy status to other drugs, medicaments and biological substances; Z79.899 Other long term (current) drug therapy
CPT/HCPCS: 36415; 71045; 71260; 74177; 80053; 81001; 83605; 83735; 83880; 84100; 85025; 85610; 85730; 86850; 86900; 86901; 87040; 87811; 93005; 93306; 94760; 96374; 96375; 99285; G0378; J0360; J1650; J1940; J2270; J2405; J2916; J7030; J7050; Q9967